=== PATIENT | female | born 1995 | race Two or more races ===

== ENCOUNTER 2025-04-10 23:17 | Emergency (ER) | payer SELFPAY ==
[2025-04-10] MEDS: diazePAM 2 MG Tab PO ONE (23:38)
[2025-04-10] MEDS: Acetaminophen 325 MG Tab PO ONE (23:38)
== END 2025-04-11 00:39 | disposition home or self-care (01) ==
LOC: MW.ED 23:17
DX: M54.50 Low back pain, unspecified (principal)
CPT/HCPCS: 99284; A9270